=== PATIENT | male | born 1995 | race African-American/Black ===

== ENCOUNTER 2022-07-07 08:35 | Emergency (ER) | payer SELFPAY ==
[~2022-07-07] VITALS: Ht 182.8 cm; Wt 68.0 kg
[2022-07-07] MEDS ORDERED: ONDANSETRON 4 MG/2 ML (SDV) Z0FRAN IVP ONE (08:40)
[2022-07-07 08:53] LABS: BASOPHILS # (AUTO) 0.1 10^3/uL (0.0-0.1); BASOPHILS % (AUTO) 0 % (0-10); EOSINOPHILS # (AUTO) 0.2 10^3/uL (0.0-0.3); EOSINOPHILS % (AUTO) 2 % (0-10); HEMATOCRIT 42 % (40-54); HEMOGLOBIN 14.1 g/dL (13.3-17.7); LYMPHOCYTES # (AUTO) 2.5 10^3/uL (1.0-4.0); LYMPHOCYTES % (AUTO) 22 % (12-44); MEAN CORPUSCULAR HEMOGLOBIN 32 pg (25-34); MEAN CORPUSCULAR HGB CONC 34 g/dL (32-36); MEAN CORPUSCULAR VOLUME 96 fL (80-99); MEAN PLATELET VOLUME 10.2 fL (9.0-12.2); MONOCYTES # (AUTO) 0.7 10^3/uL (0.0-1.0); MONOCYTES % (AUTO) 6 % (0-12); NEUTROPHILS % (AUTO) 69 % (42-75); PLATELET COUNT 202 10^3/uL (130-400); WHITE BLOOD COUNT 11.5 10^3/uL (4.3-11.0)
--- NOTE | 2022-07-07 08:53 | ED General ---
General Chief Complaint: Altered Mental Status Stated Complaint: AMS Nursing Triage Note: pt arrived via cc ems. ems stated that pts stated that pt was sweating, cold, tachycardia, lethargic, and confused. pt stated that has been sick as well. Source of Information: Patient Exam Limitations: No Limitations History of Present Illness Date Seen by Provider: Jul 07, 2022 Time Seen by Provider: 08:30 Initial Comments 26-year-old male presents to the emergency department via ambulance for nausea and vomiting. He states he felt fine when he went to sleep last night and he woke up this morning with vomiting several times. Emesis has been clear, nonbloody nonbilious. He denies any fevers but has had chills that started with his onset of vomiting. He has diffuse abdominal cramping without any focal abdominal tenderness. No changes in his bowel or bladder habits. He tells me that his has been at home with vomiting illness as well. Allergies and Home Medications Allergies Coded Allergies: No Known Drug Allergies (Unverified , 07/07/22) Patient Home Medication List Home Medication List Reviewed: Yes Ondansetron (Ondansetron Odt) 4 Mg Tab.rapdis, 4 MG PO Q6H Prescribed by: RUPALI CORADO MD on 07/07/22 8437 Review of Systems Review of Systems Constitutional: chills EENTM: no symptoms reported Respiratory: no symptoms reported Cardiovascular: no symptoms reported Gastrointestinal: nausea, vomiting Genitourinary: no symptoms reported Musculoskeletal: no symptoms reported Skin: no symptoms reported Psychiatric/Neurological: No Symptoms Reported Past Vwalhhs-Qqvchj-Dvfqbk Hx Patient Social History Tobacco Use?: No Use of E-Cig and/or Vaping dev: No Substance type: Marijuana Substance frequency: Rarely Seasonal Allergies Seasonal Allergies: No Past Medical History Surgery/Hospitalization HX: Left jaw surgery Surgeries: Yes Family Medical History Reviewed Nursing Family Hx Physical Exam Vital Signs Vital Signs - First Documented 07/07/22 08:35 Temp 37.0 Pulse 94 Resp 17 B/P (MAP) 162/146 (151) Pulse Ox 98 O2 Delivery Room Air Capillary Refill : Less Than 3 Seconds Height, Weight, BMI Height: '" Weight: lbs. oz. kg; 20.00 BMI Method: General Appearance: WD/WN, Other (Vomiting) HEENT: Normal ENT Inspection, Pharynx Normal Neck: Normal Inspection, Non Tender, Supple Respiratory: Chest Non Tender, Lungs Clear, Normal Breath Sounds, No Accessory Muscle Use, No Respiratory Distress Cardiovascular: Regular Rate, Rhythm, No Edema, No Gallop, No Murmur, Normal Peripheral Pulses Gastrointestinal: Normal Bowel Sounds, No Organomegaly, Non Tender, Soft Extremity: Normal Capillary Refill, Normal Inspection, Non Tender Neurologic/Psychiatric: Alert, Oriented x3 Skin: Normal Color, Warm/Dry Progress/Results/Core Measures Suspected Sepsis SIRS Temperature: Pulse: 94 Respiratory Rate: 17 Laboratory Tests 07/07/22 08:50: White Blood Count 11.5H Blood Pressure 162 /146 Mean: 151 Laboratory Tests 07/07/22 08:50: Creatinine 1.23, Platelet Count 202 Results/Orders Lab Results Laboratory Tests Test 07/07/22 08:50 Range/Units White Blood Count 11.5 H 4.3-11.0 10^3/uL Red Blood Count 4.38 4.30-5.52 10^6/uL Hemoglobin 14.1 13.3-17.7 g/dL Hematocrit 42 40-54 % Mean Corpuscular Volume 96 80-99 fL Mean Corpuscular Hemoglobin 32 25-34 pg Mean Corpuscular Hemoglobin Concent 34 32-36 g/dL Red Cell Distribution Width 12.6 10.0-14.5 % Platelet Count 202 130-400 10^3/uL Mean Platelet Volume 10.2 9.0-12.2 fL Immature Granulocyte % (Auto) 1 % Neutrophils (%) (Auto) 69 42-75 % Lymphocytes (%) (Auto) 22 12-44 % Monocytes (%) (Auto) 6 0-12 % Eosinophils (%) (Auto) 2 0-10 % Basophils (%) (Auto) 0 0-10 % Neutrophils # (Auto) 8.0 H 1.8-7.8 10^3/uL Lymphocytes # (Auto) 2.5 1.0-4.0 10^3/uL Monocytes # (Auto) 0.7 0.0-1.0 10^3/uL Eosinophils # (Auto) 0.2 0.0-0.3 10^3/uL Basophils # (Auto) 0.1 0.0-0.1 10^3/uL Immature Granulocyte # (Auto) 0.1 0.0-0.1 10^3/uL Sodium Level 139 135-145 MMOL/L Potassium Level 3.4 L 3.6-5.0 MMOL/L Chloride Level 103 98-107 MMOL/L Carbon Dioxide Level 13 L 21-32 MMOL/L Anion Gap 23 H 5-14 MMOL/L Blood Urea Nitrogen 13 7-18 MG/DL Creatinine 1.23 0.60-1.30 MG/DL Estimat Glomerular Filtration Rate 82 BUN/Creatinine Ratio 11 Glucose Level 185 H 70-105 MG/DL Calcium Level 9.3 8.5-10.1 MG/DL SARS-CoV-2 RNA (RT-PCR) Not Detected Not Detecte My Orders Orders - RUPALI CORADO DO Basic Metabolic Panel (07/07/22 08:46) Cbc With Automated Diff (07/07/22 08:46) Covid 19 Inhouse Test (07/07/22 08:46) Ondansetron Injection (Zofran Injectio (07/07/22 08:40) Diphenhydramine Injection (Benadryl Inje (07/07/22 09:45) Vital Signs/I&O 07/07/22 08:35 Temp 37.0 Pulse 94 Resp 17 B/P (MAP) 162/146 (151) Pulse Ox 98 O2 Delivery Room Air Capillary Refill : Less Than 3 Seconds Blood Pressure Mean: 151 Departure Communication (Admissions) Patient initially with significant vomiting in the room. No further vomiting episodes after Zofran. Tolerated p.o. without difficulty. Normal vital signs and normal. His exam is reassuring. He is discharged in stable condition with supportive care. I advised him on the use of Zofran and need for follow-up and he states understanding. Questions were sought and answered. Impression Primary Impression: Nausea and vomiting Qualified Codes: R11.2 - Nausea with vomiting, unspecified Disposition: 01 HOME, SELF-CARE Condition: Stable Departure-Patient Inst. Patient Instructions: Nausea and Vomiting, Adult (DC) Add. Discharge Instructions: You were seen in the emergency department today for nausea vomiting and chills. I believe you have a GI bug that is going around. We will treat you conservatively with Zofran. Use this by dissolving under your tongue as needed for vomiting. Increase your fluids at home as tolerated. Return to the emergency department for any severe concerns. Follow-up with your primary physician for any nonemergent needs. All discharge instructions reviewed with patient and/or family. Voiced understanding. Scripts Ondansetron (Ondansetron Odt) 4 Mg Tab.rapdis 4 MG PO Q6H for Nausea for 5 Days, #20 TAB Prov: RUPALI CORADO DO 07/07/22 RUPALI CORADO DO Jul 07, 2022 08:53
[2022-07-07 09:03] LABS: POTASSIUM 3.4 MMOL/L (3.6-5.0)
[2022-07-07 09:04] LABS: CALCIUM 9.3 MG/DL (8.5-10.1)
[2022-07-07 09:08] LABS: CREATININE SERUM 1.23 MG/DL (0.60-1.30)
[2022-07-07] MEDS ORDERED: ONDA4TAB11 PO (09:35)
[2022-07-07] MEDS ORDERED: diphenhydrAMINE 50 MG/ML INJ (BENADRYL) IVP ONE (09:45)
[2022-07-07 09:55] VITALS: BP 145/89
== END 2022-07-07 09:55 | disposition home or self-care (01) ==
LOC: ER 08:39
DX: R11.2 Nausea with vomiting, unspecified (principal); Z20.822 Contact with and (suspected) exposure to COVID-19; Z28.310 Unvaccinated for COVID-19
CPT/HCPCS: 36415; 80048; 85025; 87636

== ENCOUNTER 2023-01-08 08:25 | Emergency (ER) | payer SELFPAY ==
[~2023-01-08] VITALS: Ht 182 cm; Wt 81.0 kg
[~2023-01-08 08:25] MED LIST: ONDA4TAB11 PO
[2023-01-08] MEDS ORDERED: ONDANSETRON 4 MG/2 ML (SDV) Z0FRAN ONE (08:35)
[2023-01-08] MEDS ORDERED: NS IV 1000 ML 1,000 ML IV SCH (08:45)
[2023-01-08] MEDS ORDERED: ONDANSETRON 4 MG/2 ML (SDV) Z0FRAN IVP ONE (08:45)
[2023-01-08] MEDS ORDERED: PANTOPRAZOLE 40 MG (PROTONIX) VIAL IV ONE (08:45)
[2023-01-08 08:47] LABS: BASOPHILS # (AUTO) 0.1 10^3/uL (0.0-0.1); BASOPHILS % (AUTO) 0 % (0-10); EOSINOPHILS # (AUTO) 0.4 10^3/uL (0.0-0.3); EOSINOPHILS % (AUTO) 3 % (0-10); HEMATOCRIT 41 % (40-54); LYMPHOCYTES # (AUTO) 3.5 10^3/uL (1.0-4.0); LYMPHOCYTES % (AUTO) 22 % (12-44); MEAN CORPUSCULAR HEMOGLOBIN 33 pg (25-34); MEAN CORPUSCULAR HGB CONC 34 g/dL (32-36); MEAN CORPUSCULAR VOLUME 96 fL (80-99); MEAN PLATELET VOLUME 10.6 fL (9.0-12.2); MONOCYTES # (AUTO) 0.8 10^3/uL (0.0-1.0); MONOCYTES % (AUTO) 5 % (0-12); NEUTROPHILS # (AUTO) 11.1 10^3/uL (1.8-7.8); NEUTROPHILS % (AUTO) 70 % (42-75); PLATELET COUNT 187 10^3/uL (130-400)
[2023-01-08 08:53] LABS: BILIRUBIN,URINE NEGATIVE (NEGATIVE); CLARITY,URINE CLEAR; COLOR,URINE YELLOW; GLUCOSE, URINE (UA) 1+ (NEGATIVE); KETONES,URINE 1+ (NEGATIVE); LEUKOCYTE ESTERASE ,URINE NEGATIVE (NEGATIVE); NITRITE,URINE NEGATIVE (NEGATIVE); PH,URINE 5.5 (5-9); PROTEIN,URINE NEGATIVE (NEGATIVE)
[2023-01-08 08:57] LABS: ALBUMIN 4.1 GM/DL (3.2-4.5)
[2023-01-08 08:58] LABS: POTASSIUM 3.8 MMOL/L (3.6-5.0)
[2023-01-08 08:59] LABS: CALCIUM 8.8 MG/DL (8.5-10.1)
[2023-01-08 08:59] LABS: BACTERIA,URINE NEGATIVE /HPF; SQUAMOUS EPITHELIAL CELL,UR RARE /HPF
[2023-01-08 09:00] LABS: TOTAL PROTEIN 7.7 GM/DL (6.4-8.2)
[2023-01-08 09:02] LABS: BILIRUBIN,TOTAL 0.4 MG/DL (0.1-1.0)
[2023-01-08 09:04] LABS: AMPHETAMINE SCREEN, URINE NEGATIVE (NEGATIVE); BARBITURATE SCREEN URINE NEGATIVE (NEGATIVE); BENZODIAZEPINES SCREEN URINE NEGATIVE (NEGATIVE); CANNABINOID SCREEN, URINE POSITIVE (NEGATIVE); COCAINE SCREEN URINE NEGATIVE (NEGATIVE); METHADONE STAT NEGATIVE (NEGATIVE); OPIATE SCREEN URINE NEGATIVE (NEGATIVE); OXYCODONE STAT NEGATIVE (NEGATIVE); PROPOXYPHENE STAT NEGATIVE (NEGATIVE); TRICYCLIC ANTIDEPRESSANTS SCRE NEGATIVE (NEGATIVE)
[2023-01-08 09:04] LABS: CREATININE SERUM 1.03 MG/DL (0.60-1.30)
[2023-01-08 09:05] LABS: SALICYLATE < 5.0 MG/DL (5.0-20.0)
[2023-01-08 09:07] LABS: BAND NEUTROPHILS 1 %; BASOPHILS % (MANUAL) 1 %; EOSINOPHILS % (MANUAL) 6 %; LYMPHOCYTES % (MANUAL) 29 %; MONOCYTES % (MANUAL) 1 %; NEUTROPHILS % (MANUAL) 62 %
[2023-01-08 09:08] LABS: RBC MORPH NORMAL
--- NOTE | 2023-01-08 09:25 | Diagnostic Imaging Report ---
INDICATION: Chest pain FINDINGS: External leads overlie the chest. The lungs appeared clear. There is no failure, effusion or pneumothorax however we acknowledge portions of the right costophrenic angle outside the [id number]. IMPRESSION: 1. No acute or pathological finding radiographically apparent at AP frontal chest. 2. We note on the film itself it is labeled as 2 of 2, however I only have one radiograph submitted for review. Dictated by: Dictated on workstation # [id number]
[2023-01-08 09:54] LABS: PROTHROMBIN TIME PATIENT 13.7 SEC (12.2-14.7)
--- NOTE | 2023-01-08 09:54 | ED Chest Pain ---
General Chief Complaint: Chest Pain Stated Complaint: UNRESPONSIVE Nursing Triage Note: PT ARRIVED PER EMS, PT HAS SEVERE CHEST PAIN, SWEATING, BS 44 FOR EMS, D10 INFUSING IN L FA W #20 BY EMS. PT IS SHAKING, UNABLE TO HOLD STILL, CLUTCHING L CHEST AREA. PT STATES SMOKED WEED LAST PM AND DRANK ALOT OF BEER. EMS STATES PT UNRESP AT TIMES AND QUIT BREATHING, BAGGED A COUPLE OF TIMES, PT RESPONSIVE UPON ARRIVAL TO ED. PT ABLE TO ANSWER SIMPLE QUESTIONS. PT PLACED ON NRB. Source: patient, EMS Exam Limitations: clinical condition History of Present Illness Date Seen by Provider: Jan 08, 2023 Time Seen by Provider: 08:28 Initial Comments This 27-year-old young man presents to the emergency room with primary complaint of chest pain. He has been experiencing intermittent chest pain for the last 2 to 3 days and last frequently for a long time prior to that. He has episodes of associated pain in his neck and paresthesias down the left arm. He consumed a significant amount of alcohol last night as well as marijuana. In route with EMS he became less responsive with relative apnea. He retained pulse. He was found to have a blood sugar of 44. A D10 infusion was initiated by EMS. The D10 infusion was bolused and rapidly with a resulting fingerstick blood sugar of 197. Patient became much more alert and conversant. Chest pain seemed more musculoskeletal or pleuritic in nature as it did seem to have worsening with palpation, deep breathing, and movement. Patient admits to drinking alcohol and smoking marijuana every day. He also has history of mental illness including PTSD. He was previously on Seroquel but has not been taking any for the past 4 years. He presently has no local physician. He is accompanied today by his fiance. He developed vomiting shortly after arrival. His fiance reports history of substance induced and withdrawal seizures in the past. Historians are EMS, patient and fiance. Allergies and Home Medications Allergies Coded Allergies: No Known Drug Allergies (Unverified , 07/07/22) Patient Home Medication List Home Medication List Reviewed: Yes Ondansetron (Ondansetron Odt) 4 Mg Tab.rapdis, 4 MG PO Q6H Prescribed by: RUPALI CORADO MD on 07/07/22 0964 Review of Systems Review of Systems Constitutional: no symptoms reported EENTM: No Symptoms Reported Respiratory: See HPI Cardiovascular: No Symptoms Reported Gastrointestinal: See HPI Genitourinary: No Symptoms Reported Musculoskeletal: see HPI Skin: no symptoms reported Psychiatric/Neurological: See HPI Endocrine: No Symptoms Reported Hematologic/Lymphatic: See HPI Past Klyaeae-Wqlvpm-Wfsclk Hx Patient Social History Tobacco Use?: No Substance use?: Yes Substance type: Marijuana Substance frequency: Daily Alcohol Use?: Yes Alcohol type: Beer Alcohol Frequency: Daily Pt feels they are or have been: No Immunizations Up To Date Influenza Vaccine Up-to-Date: No; Not Current First/Initial COVID19 Vaccinat: NO Seasonal Allergies Seasonal Allergies: No Past Medical History Surgery/Hospitalization HX: Left jaw surgery Surgeries: Yes Respiratory: Yes Asthma Cardiac: No Neurological: Yes Seizure Disorder (associated with substance abuse and withdrawal) Genitourinary: No Gastrointestinal: No Musculoskeletal: No Endocrine: No HEENT: No Cancer: No Psychosocial: Yes (Polysubstance abuse) PTSD Integumentary: No Physical Exam Vital Signs Vital Signs - First Documented 01/08/23 01/08/23 08:25 09:15 Temp 34.0 Pulse 96 Resp 44 B/P (MAP) 131/92 (105) Pulse Ox 100 O2 Delivery OxyMask O2 Flow Rate 10.00 Capillary Refill : Less Than 3 Seconds Height, Weight, BMI Height: '" Weight: lbs. oz. kg; 24.00 BMI Method: General Appearance: WD/WN, Moderate Distress (agitated and vomiting early in ED course), Thin HEENT: PERRL/EOMI, Normal ENT Inspection, Pharynx Normal Neck: Normal Inspection Respiratory: Lungs Clear, Normal Breath Sounds, No Accessory Muscle Use Cardiovascular: Regular Rate, Rhythm, No Edema, No Murmur Gastrointestinal: Soft; No Distended; Tenderness (mild in the epigastrium) Extremity: Normal Inspection, No Pedal Edema Neurologic/Psychiatric: Alert, Oriented x3, No Motor/Sensory Deficits, Normal Mood/Affect, physician office specialist II-XII Norm as Tested, Other (Initial AMS resolved with correction of hypoglycemia) Skin: Normal Color Progress/Results/Core Measures Results/Orders Lab Results Laboratory Tests Test 01/08/23 08:36 01/08/23 08:40 01/08/23 08:46 01/08/23 09:17 Range/Units White Blood Count 16.0 H 4.3-11.0 10^3/uL Red Blood Count 4.29 L 4.30-5.52 10^6/uL Hemoglobin 14.0 13.3-17.7 g/dL Hematocrit 41 40-54 % Mean Corpuscular Volume 96 80-99 fL Mean Corpuscular Hemoglobin 33 25-34 pg Mean Corpuscular Hemoglobin Concent 34 32-36 g/dL Red Cell Distribution Width 12.2 10.0-14.5 % Platelet Count 187 130-400 10^3/uL Mean Platelet Volume 10.6 9.0-12.2 fL Immature Granulocyte % (Auto) 0 % Neutrophils (%) (Auto) 70 42-75 % Lymphocytes (%) (Auto) 22 12-44 % Monocytes (%) (Auto) 5 0-12 % Eosinophils (%) (Auto) 3 0-10 % Basophils (%) (Auto) 0 0-10 % Neutrophils # (Auto) 11.1 H 1.8-7.8 10^3/uL Lymphocytes # (Auto) 3.5 1.0-4.0 10^3/uL Monocytes # (Auto) 0.8 0.0-1.0 10^3/uL Eosinophils # (Auto) 0.4 H 0.0-0.3 10^3/uL Basophils # (Auto) 0.1 0.0-0.1 10^3/uL Immature Granulocyte # (Auto) 0.1 0.0-0.1 10^3/uL Neutrophils % (Manual) 62 % Lymphocytes % (Manual) 29 % Monocytes % (Manual) 1 % Eosinophils % (Manual) 6 % Basophils % (Manual) 1 % Band Neutrophils 1 % Blood Morphology Comment NORMAL Sodium Level 139 135-145 MMOL/L Potassium Level 3.8 3.6-5.0 MMOL/L Chloride Level 104 98-107 MMOL/L Carbon Dioxide Level 14 L 21-32 MMOL/L Anion Gap 21 H 5-14 MMOL/L Blood Urea Nitrogen 11 7-18 MG/DL Creatinine 1.03 0.60-1.30 MG/DL Estimat Glomerular Filtration Rate 101 BUN/Creatinine Ratio 11 Glucose Level 161 H 70-105 MG/DL Calcium Level 8.8 8.5-10.1 MG/DL Corrected Calcium 8.7 8.5-10.1 MG/DL Magnesium Level 2.0 1.6-2.4 MG/DL Total Bilirubin 0.4 0.1-1.0 MG/DL Aspartate Amino Transf (AST/SGOT) 109 H 5-34 U/L Alanine Aminotransferase (ALT/SGPT) 121 H 0-55 U/L Alkaline Phosphatase 56 40-136 U/L Myoglobin 26.0 10.0-92.0 NG/ML Troponin I < 0.028 <0.028 NG/ML Total Protein 7.7 6.4-8.2 GM/DL Albumin 4.1 3.2-4.5 GM/DL Salicylates Level < 5.0 L 5.0-20.0 MG/DL Serum Alcohol 120 H <10 MG/DL Urine Color YELLOW Urine Clarity CLEAR Urine pH 5.5 5-9 Urine Specific [place] 1.025 H 1.016-1.022 Urine Protein NEGATIVE NEGATIVE Urine Glucose (UA) 1+ H NEGATIVE Urine Ketones 1+ H NEGATIVE Urine Nitrite NEGATIVE NEGATIVE Urine Bilirubin NEGATIVE NEGATIVE Urine Urobilinogen 0.2 < = 1.0 MG/DL Urine Leukocyte Esterase NEGATIVE NEGATIVE Urine RBC (Auto) NEGATIVE NEGATIVE Urine RBC NONE /HPF Urine WBC NONE /HPF Urine Squamous Epithelial Cells RARE /HPF Urine Crystals NONE /LPF Urine Bacteria NEGATIVE /HPF Urine Casts NONE /LPF Urine Mucus NEGATIVE /LPF Urine Culture Indicated NO Urine Opiates Screen NEGATIVE NEGATIVE Urine Oxycodone Screen NEGATIVE NEGATIVE Urine Methadone Screen NEGATIVE NEGATIVE Urine Propoxyphene Screen NEGATIVE NEGATIVE Urine Barbiturates Screen NEGATIVE NEGATIVE Ur Tricyclic Antidepressants Screen NEGATIVE NEGATIVE Urine Phencyclidine Screen NEGATIVE NEGATIVE Urine Amphetamines Screen NEGATIVE NEGATIVE Urine Methamphetamines Screen NEGATIVE NEGATIVE Urine Benzodiazepines Screen NEGATIVE NEGATIVE Urine Cocaine Screen NEGATIVE NEGATIVE Urine Cannabinoids Screen POSITIVE H NEGATIVE Glucometer 197 H 70-110 MG/DL Total Creatine Kinase 220 H 30-200 U/L C-Reactive Protein High Sensitivity 0.04 0.00-0.50 MG/DL Lipase 11 8-78 U/L Test 01/08/23 09:24 01/08/23 11:48 01/08/23 12:08 01/08/23 12:43 Range/Units Prothrombin Time 13.7 12.2-14.7 SEC INR Comment 1.0 0.8-1.4 Activated Partial Thromboplast Time 26 24-35 SEC D-Dimer < 0.27 0.00-0.49 UG/ML Troponin I < 0.028 <0.028 NG/ML Glucometer 59 *L 158 H 70-110 MG/DL Test 01/08/23 13:36 01/08/23 14:08 Range/Units Glucometer 111 H 138 H 70-110 MG/DL My Orders Orders - SOPHIA MORALES MD Cbc With Automated Diff (01/08/23 08:34) Magnesium (01/08/23 08:34) Chest 1 View, Ap/Pa Only (01/08/23 08:34) Ekg Tracing (01/08/23 08:34) Comprehensive Metabolic Panel (01/08/23 08:34) Myoglobin Serum (01/08/23 08:34) Protime With Inr (01/08/23 08:34) Partial Thromboplastin Time (01/08/23 08:34) O2 (01/08/23 08:34) Monitor-Rhythm Ecg Trace Only (01/08/23 08:34) Ed Iv/Invasive Line Start (01/08/23 08:34) Fibrin Degradation Products (01/08/23 08:34) Troponin I [facility] (01/08/23 08:34) Acetaminophen (01/08/23 08:34) Alcohol (01/08/23 08:34) Drug Screen Stat (Urine) (01/08/23 08:34) Salicylate (01/08/23 08:34) Ua Culture If Indicated (01/08/23 08:34) Ondansetron Injection (Zofran Injectio (01/08/23 08:45) Ns Iv 1000 Ml (Sodium Chloride 0.9%) (01/08/23 08:45) Ondansetron Injection (Zofran Injectio (01/08/23 08:35) Pantoprazole Injection (Protonix Injecti (01/08/23 08:45) Manual Differential (01/08/23 08:36) Creatine Kinase (01/08/23 09:17) Hs C Reactive Protein (01/08/23 09:17) Lipase (01/08/23 09:17) Accucheck Stat ONCE (01/08/23 09:19) Accucheck Stat ONCE (01/08/23 09:19) Accucheck Stat ONCE (01/08/23 09:19) Ekg Tracing (01/08/23 09:55) Troponin I [place] (01/08/23 11:10) Ct Head/Cervical Spine Wo (01/08/23 11:04) Ketorolac Injection (Toradol Injection) (01/08/23 12:00) D50w (Emergency) Syringe (Dextrose 50% 5 (01/08/23 12:15) Accucheck Stat ONCE (01/08/23 12:14) Accucheck Stat ONCE (01/08/23 12:14) D50w (Emergency) Syringe (Dextrose 50% 5 (01/08/23 12:13) Ekg Tracing (01/08/23 08:43) Medications Given in ED Vital Signs/I&O 01/08/23 01/08/23 01/08/23 08:25 09:15 12:02 Temp 34.0 35.6 Pulse 96 98 Resp 44 16 B/P (MAP) 131/92 (105) 127/76 Pulse Ox 100 100 98 O2 Delivery OxyMask O2 Flow Rate 10.00 Blood Pressure Mean: 105 FSBG Bedside Testing Finger Stick Blood Glucose: 197 Blood Glucose Action Taken: REPORTED TO DR Ta Progress Note #1: Progress Note Initial treatments were provided with Zofran, Protonix, IVF, and completion of the D10 infusion. Pain was later treated with Toradol. Labs were reviewed including CBC, CMP, CK, CRP, Lipase, Troponin, and D-Dimer. Serial troponins were negative. Leukocytosis was noted but was likely secondary to vomiting as CRP was normal. Lipase and CMP were relatively unremarkable. Progress Note #2: Time: 14:10 Progress Note Delta troponin was negative. Patient had a recurrent hypoglycemia with blood sugar of 59. He was treated again with D50 and provided food. Blood sugars thereafter were 158, 111, and 138. These blood sugars demonstrated stability and he was discharged. Patient was offered admission for observation. He elected to finish out a reasonable course of care in the ER with demonstrated stabilization of BS and evaluation of the head and cervical spine to rule out dangerous pathology of the cervical spine or brain contributing to his AMS and pain in the chest and arm. Cervical radiculopathy was suspected as a contributing factor. CT imaging was reviewed by me and reports was reviewed. No contributing pathology was identified. He was encouraged to pursue MRI with a PCP. He was advised to completely stop THC use, taper down on alcohol, and establish with a PCP. See discharge instructions for further discussion. EKG #1: EKG Time: 08:27 Rate: 98 Rhythm: Normal Sinus Intervals QTc 556 Comment Sinus rhythm with no ST elevation or depression. QTc prolonged at 556 ms. No other abnormal intervals. Right axis deviation. EKG #2: EKG Time: 08:44 Rate: 100 Rhythm: S.Tach Intervals: Normal Comment Mild sinus tachycardia with no ST elevation or depression. PVC noted. QTc prolongation has resolved and new QTc is 480 ms. No axis deviation. Diagnostic Imaging Diagonstic Imaging: Xray Plain Films/CT/US/NM/MRI: chest Comments NAME: DARWIN HUIZAR [facility] REC#: [id number] PT STATUS: REG ER : 1995 PHYSICIAN: SOPHIA MORALES MD ADMIT DATE: 01/08/23/ER Signed Date of Exam:01/08/23 CHEST 1 VIEW, AP/PA ONLY INDICATION: Chest pain FINDINGS: External leads overlie the chest. The lungs appeared clear. There is no failure, effusion or pneumothorax however we acknowledge portions of the right costophrenic angle outside the [id number]. IMPRESSION: 1. No acute or pathological finding radiographically apparent at AP frontal chest. 2. We note on the film itself it is labeled as 2 of 2, however I only have one radiograph submitted for review. Dictated by: Dictated on workstation # [id number] Dict: 01/08/23918 Trans: 01/08/23923 [facility] [id number] Interpreted by: COLLINS JAUREGUI Electronically signed by: COLLINS JAUREGUI 01/08/23923 Diagonstic Imaging: CT Plain Films/CT/US/NM/MRI: c-spine, head Comments NAME: DARWIN HUIZAR [facility] REC#: [id number] PT STATUS: REG ER : 1995 PHYSICIAN: SOPHIA MORALES MD ADMIT DATE: 01/08/23/ER Signed Date of Exam:01/08/23 CT HEAD/CERVICAL SPINE WO PROCEDURE: CT head and CT cervical spine without contrast. TECHNIQUE: Multiple contiguous axial images were obtained through the brain and cervical spine without the use of intravenous contrast. Sagittal and coronal reformations through the cervical spine were then performed. Auto Exposure Controls were utilized during the CT exam to meet ALARA standards for radiation dose reduction. INDICATION: Chest pain, left arm radicular symptoms. COMPARISON: None available. FINDINGS: No intracranial hemorrhage. No intracranial mass, mass effect, midline shift, herniation, hydrocephalus, or extra-axial fluid collection. No definite CT evidence of an acute ischemic infarction. The orbits are unremarkable. Significant mucosal thickening and fluid within the bilateral ethmoid air cells, left greater than right. This is associated with mild inspissated secretions and mucosal thickening within the left sphenoid sinus. Mild mucosal thickening within the left maxillary sinus and right maxillary sinus. Leftward nasal septal deviation. The calvarium and extracalvarial soft tissues are otherwise unremarkable. [place] right curvature of the visualized cervicothoracic spine. No significant anterolisthesis or retrolisthesis. Alignment of the atlanto-occipital joint is well maintained. Vertebral body heights are well maintained. No significant disc space height loss. Plate and screw fixation involving the left mandible. Degenerative changes associated with the right temporomandibular joint. No acute fracture or dislocation. No destructive osseous process. No high-grade osseous central canal or neural foraminal stenosis. No apical pneumothorax. The paraspinal soft tissues are unremarkable. IMPRESSION: No acute intracranial abnormality. Mild apex right curvature of the cervical spine without acute osseous abnormality. Fluid and mucosal thickening within scattered ethmoidal air cells with additional mild paranasal sinus disease. Dictated by: Dictated on workstation # [id number] Dict: 01/08/23 1128 Trans: 01/08/23 1140 [id number] Interpreted by: GERONIMO ALVAREZ MD Electronically signed by: GERONIMO ALVAREZ MD 01/08/23 1140 Departure Impression Primary Impression: Altered mental status Qualified Codes: R41.82 - Altered mental status, unspecified Additional Impressions: Hypoglycemia Nausea & vomiting Qualified Codes: R11.2 - Nausea with vomiting, unspecified Polysubstance abuse Disposition: 01 HOME, SELF-CARE Condition: Improved Departure-Patient Inst. Decision time for Depature: 11:52 Referrals: NO,LOCAL PHYSICIAN (PCP/Family) Primary Care Physician Patient Instructions: ALCOHOL AND SUBSTANCE ABUSE, Chest Pain, HYPOGLYCEMIA, Radiculopathy Add. Discharge Instructions: Establish with a primary care provider as soon as possible. Make a follow-up appointment. Discussed the possibility of further evaluation with MRI of the cervical spine and brain with your primary care doctor. Complete the financial assistance application process with the hospital to help facilitate any future test that may be needed. For your pain you may take Tylenol (acetaminophen) up to 1000 mg every 6 hours as needed and/or ibuprofen up to 600 mg every 6 hours as needed. Discontinue marijuana use completely. Start tapering down on your alcohol use to gradually work toward quitting. Do not abruptly stop alcohol use as this may cause life-threatening withdrawal and seizures. Your alcohol consumption should be gradually decreased over a period of several weeks. Eat a well-balanced diet and eat snacks containing carbohydrate frequently to avoid drops in blood sugar. Return to the emergency room if you have any worsening of symptoms. All discharge instructions reviewed with patient and/or family. Voiced understanding. SOPHIA MORALES MD Jan 08, 2023 09:54
--- NOTE | 2023-01-08 11:40 | Diagnostic Imaging Report ---
PROCEDURE: CT head and CT cervical spine without contrast. TECHNIQUE: Multiple contiguous axial images were obtained through the brain and cervical spine without the use of intravenous contrast. Sagittal and coronal reformations through the cervical spine were then performed. Auto Exposure Controls were utilized during the CT exam to meet ALARA standards for radiation dose reduction. INDICATION: Chest pain, left arm radicular symptoms. COMPARISON: None available. FINDINGS: No intracranial hemorrhage. No intracranial mass, mass effect, midline shift, herniation, hydrocephalus, or extra-axial fluid collection. No definite CT evidence of an acute ischemic infarction. The orbits are unremarkable. Significant mucosal thickening and fluid within the bilateral ethmoid air cells, left greater than right. This is associated with mild inspissated secretions and mucosal thickening within the left sphenoid sinus. Mild mucosal thickening within the left maxillary sinus and right maxillary sinus. Leftward nasal septal deviation. The calvarium and extracalvarial soft tissues are otherwise unremarkable. Delta right curvature of the visualized cervicothoracic spine. No significant anterolisthesis or retrolisthesis. Alignment of the atlanto-occipital joint is well maintained. Vertebral body heights are well maintained. No significant disc space height loss. Plate and screw fixation involving the left mandible. Degenerative changes associated with the right temporomandibular joint. No acute fracture or dislocation. No destructive osseous process. No high-grade osseous central canal or neural foraminal stenosis. No apical pneumothorax. The paraspinal soft tissues are unremarkable. IMPRESSION: No acute intracranial abnormality. Mild apex right curvature of the cervical spine without acute osseous abnormality. Fluid and mucosal thickening within scattered ethmoidal air cells with additional mild paranasal sinus disease. Dictated by: Dictated on workstation # [id number]
[2023-01-08] MEDS ORDERED: KETOROLAC 30 MG/ML VIAL IVP ONE (12:00)
[2023-01-08 12:02] VITALS: BP 127/76
[2023-01-08] MEDS ORDERED: DEXTROSE 50% 50 ML (IMS) SYR ONE (12:13)
[2023-01-08] MEDS ORDERED: DEXTROSE 50% 50 ML (IMS) SYR IV ONE (12:15)
== END 2023-01-08 14:18 | disposition home or self-care (01) ==
LOC: EDUNIT# 08:27 → ER 08:28
DX: E16.2 Hypoglycemia, unspecified (principal); F19.10 Other psychoactive substance abuse, uncomplicated; D72.829 Elevated white blood cell count, unspecified; Z28.310 Unvaccinated for COVID-19
CPT/HCPCS: 70450; 71045; 72125; 80053; 80306; 81000; 82550; 82947; 83690; 83735; 83874; 84484; 85007; 85027; 85379; 85610; 85730; 86141; 93041; G0480 ×2; 36415; 80320; 80329; 93005

== ENCOUNTER 2023-09-30 17:39 | Emergency (ER) | payer SELFPAY ==
--- NOTE | 2023-09-30 18:10 | ED Neurological Problem ---
General Chief Complaint: Neurological Problems Stated Complaint: SEIZURE Nursing Triage Note: PT BROUGHT IN BY [facility] FROM HOME WITH COMPLAINT OF STRESS INDUCED SEIZURES. PT WENT AND LAID ON PORCH AND PER FAMILY HAD A SEIZURE. Source: patient Exam Limitations: no limitations (VANESSA DUNLAP) History of Present Illness Date Seen by Provider: Sep 30, 2023 Time Seen by Provider: 18:08 Initial Comments Patient is a 27-year-old male with a history of stress-induced seizures who presents to ED for seizure. Patient states he was laying in the bathroom and supposedly went to lay on the porch and had a witnessed seizure per family. Patient was appeared to be postictal on arrival. Patient states he has a history of stress-induced seizures not currently on medication. Last seizure 2 months ago. States he has been experiencing diarrhea for the past 3 days. Denies any vomiting. Patient states he does have a mild headache but denies hitting his head. Patient did drink 2 beers today. Denies any drug use. Denies of any specific chest pain, shortness of breath, abdominal pain, vomiting, diarrhea, neck pain, middle lower back pain. Patient on arrival alert and orient x4. GCS of 15. Seizure precautions. (VANESSA DUNLAP) Allergies and Home Medications Allergies Coded Allergies: ibuprofen (Verified Allergy, Severe, "Airway tightening", 01/09/23) Received toradol without problems Patient Home Medication List Home Medication List Reviewed: Yes (VANESSA DUNLAP) Ondansetron (Ondansetron Odt) 4 Mg Tab.rapdis, 4 MG PO Q6H Prescribed by: RUPALI CORADO MD on 07/07/22 8835 Review of Systems Review of Systems Constitutional: No chills, No diaphoresis, No malaise, No weakness Eyes: Denies Blurred Vision, Denies Drainage, Denies Decreased Acuity Ears, Nose, Mouth, Throat: denies ear pain, denies ear discharge Respiratory: No cough, No dyspnea on exertion Cardiovascular: No chest pain, No edema, No palpitations Gastrointestinal: No abdominal pain; diarrhea; No nausea, No vomiting Genitourinary: No decreased output, No discharge Musculoskeletal: No back pain, No joint pain Skin: No change in color, No change in hair/nails Psychiatric/Neurological: Denies Depressed (VANESSA DUNLAP) All Other Systems Reviewed Negative Unless Noted: Yes (VANESSA DUNLAP) Past Hhlkrei-Yawsax-Zjoblz Hx Patient Social History Tobacco Use?: No Use of E-Cig and/or Vaping dev: No Substance use?: Yes Alcohol Use?: Yes Alcohol type: Beer Alcohol Frequency: Once in a while Pt feels they are or have been: No (VANESSA DUNLAP) Immunizations Up To Date First/Initial COVID19 Vaccinat: NO Second COVID19 Vaccination João: NO Third COVID19 Vaccination Date: NO (VANESSA DUNLAP) Seasonal Allergies Seasonal Allergies: No (VANESSA DUNLAP) Past Medical History Surgery/Hospitalization HX: Left jaw surgery Surgeries: Yes Respiratory: Yes Asthma Cardiac: No Neurological: Yes Seizure Disorder Genitourinary: No Gastrointestinal: No Musculoskeletal: No Endocrine: No HEENT: No Cancer: No Psychosocial: Yes (Polysubstance abuse) PTSD Integumentary: No (VANESSA DUNLAP) Physical Exam Vital Signs Vital Signs - First Documented 09/30/23 17:44 Temp 35.0 Pulse 76 Resp 17 B/P (MAP) 110/93 (99) Pulse Ox 95 O2 Delivery Room Air (SOPHIA MORALES MD) Vital Signs Capillary Refill : Less Than 3 Seconds (VANESSA DUNLAP) Height, Weight, BMI Height: '" Weight: lbs. oz. kg; 24.00 BMI Method: General Appearance: WD/WN, no apparent distress HEENT: PERRL/EOMI, normal ENT inspection, TMs normal, pharynx normal Neck: non-tender, full range of motion, supple Respiratory: chest non-tender, lungs clear, normal breath sounds, no respiratory distress, no accessory muscle use Cardiovascular: regular rate, rhythm, no edema, no gallop, no JVD Gastrointestinal: normal bowel sounds, non tender, soft Back: normal inspection, no CVA tenderness Extremities: normal range of motion, non-tender, normal inspection, no pedal edema Neurologic/Psychiatric: equestrian trainer II-XII nml as tested, no motor/sensory deficits, alert, normal mood/affect, oriented x 3 Crainal Nerves: normal hearing, normal speech, PERRL Coordination/Gait: normal finger to nose, normal gait Motor/Sensory: no motor deficit, no sensory deficit Skin: normal color, warm/dry (VANESSA DUNLAP) Focused Exam Lactate Level 09/30/23 18:24: Lactic Acid Level 4.98*H 09/30/23 20:36: Lactic Acid Level 4.52*H (SOPHIA MORALES MD) Lactic Acid Level Laboratory Tests Test 09/30/23 18:24 09/30/23 20:36 Lactic Acid Level 4.98 MMOL/L (0.50-2.00) *H 4.52 MMOL/L (0.50-2.00) *H (SOPHIA MORALES MD) Progress/Results/Core Measures Results/Orders Lab Results Laboratory Tests Test 09/30/23 18:24 09/30/23 20:03 09/30/23 20:36 Range/Units White Blood Count 15.5 H 4.3-11.0 10^3/uL Red Blood Count 4.47 4.30-5.52 10^6/uL Hemoglobin 14.5 13.3-17.7 g/dL Hematocrit 43 40-54 % Mean Corpuscular Volume 97 80-99 fL Mean Corpuscular Hemoglobin 32 25-34 pg Mean Corpuscular Hemoglobin Concent 34 32-36 g/dL Red Cell Distribution Width 11.9 10.0-14.5 % Platelet Count 199 130-400 10^3/uL Mean Platelet Volume 9.8 9.0-12.2 fL Immature Granulocyte % (Auto) 1 % Neutrophils (%) (Auto) 81 H 42-75 % Lymphocytes (%) (Auto) 12 12-44 % Monocytes (%) (Auto) 5 0-12 % Eosinophils (%) (Auto) 1 0-10 % Basophils (%) (Auto) 0 0-10 % Neutrophils # (Auto) 12.6 H 1.8-7.8 10^3/uL Lymphocytes # (Auto) 1.8 1.0-4.0 10^3/uL Monocytes # (Auto) 0.8 0.0-1.0 10^3/uL Eosinophils # (Auto) 0.1 0.0-0.3 10^3/uL Basophils # (Auto) 0.1 0.0-0.1 10^3/uL Immature Granulocyte # (Auto) 0.1 0.0-0.1 10^3/uL Neutrophils % (Manual) 73 % Lymphocytes % (Manual) 19 % Monocytes % (Manual) 2 % Eosinophils % (Manual) 2 % Basophils % (Manual) 0 % Band Neutrophils 4 % Blood Morphology Comment NORMAL Sodium Level 142 135-145 MMOL/L Potassium Level 3.9 3.6-5.0 MMOL/L Chloride Level 103 98-107 MMOL/L Carbon Dioxide Level 21 21-32 MMOL/L Anion Gap 18 H 5-14 MMOL/L Blood Urea Nitrogen 17 7-18 MG/DL Creatinine 1.05 0.60-1.30 MG/DL Estimat Glomerular Filtration Rate 99 BUN/Creatinine Ratio 16 Glucose Level 70 70-105 MG/DL Lactic Acid Level 4.98 *H 4.52 *H 0.50-2.00 MMOL/L Calcium Level 9.6 8.5-10.1 MG/DL Corrected Calcium 8.5-10.1 MG/DL Total Bilirubin 0.4 0.1-1.0 MG/DL Aspartate Amino Transf (AST/SGOT) 57 H 5-34 U/L Alanine Aminotransferase (ALT/SGPT) 36 0-55 U/L Alkaline Phosphatase 62 40-136 U/L Total Protein 8.8 H 6.4-8.2 GM/DL Albumin 5.0 H 3.2-4.5 GM/DL Serum Alcohol 119 H <10 MG/DL Urine Color YELLOW Urine Clarity CLEAR Urine pH 5.0 5-9 Urine Specific [place] >=1.030 1.016-1.022 Urine Protein 1+ H NEGATIVE Urine Glucose (UA) NEGATIVE NEGATIVE Urine Ketones 3+ H NEGATIVE Urine Nitrite NEGATIVE NEGATIVE Urine Bilirubin NEGATIVE NEGATIVE Urine Urobilinogen 0.2 < = 1.0 MG/DL Urine Leukocyte Esterase NEGATIVE NEGATIVE Urine RBC (Auto) NEGATIVE NEGATIVE Urine RBC 0-2 /HPF Urine WBC 0-2 /HPF Urine Squamous Epithelial Cells 2-5 /HPF Urine Crystals NONE /LPF Urine Bacteria TRACE /HPF Urine Casts PRESENT /LPF Urine Hyaline Casts RARE /LPF Urine Mucus NEGATIVE /LPF Urine Culture Indicated NO Urine Opiates Screen NEGATIVE NEGATIVE Urine Oxycodone Screen NEGATIVE NEGATIVE Urine Methadone Screen NEGATIVE NEGATIVE Urine Barbiturates Screen NEGATIVE NEGATIVE Ur Tricyclic Antidepressants Screen NEGATIVE NEGATIVE Urine Phencyclidine Screen NEGATIVE NEGATIVE Urine Amphetamines Screen NEGATIVE NEGATIVE Urine Methamphetamines Screen NEGATIVE NEGATIVE Urine Benzodiazepines Screen NEGATIVE NEGATIVE Urine Cocaine Screen NEGATIVE NEGATIVE Urine Cannabinoids Screen POSITIVE H NEGATIVE (SOPHIA MORALES MD) Medications Given in ED Current Medications Medications Dose Ordered Sig/Yuridia Route Start Time Stop Time Status Last Admin Dose Admin Ondansetron HCl 4 mg ONCE ONCE IVP 09/30/23 19:00 09/30/23 19:01 DC 09/30/23 18:58 4 MG (SOPHIA MORALES MD) Vital Signs/I&O 09/30/23 09/30/23 17:44 21:16 Temp 35.0 Pulse 76 99 Resp 17 17 B/P (MAP) 110/93 (99) 118/79 Pulse Ox 95 99 O2 Delivery Room Air Room Air (SOPHIA MORALES MD) Blood Pressure Mean: 99 Comment Sinus rhythm with sinus arrhythmia, 80 bpm, QRS duration 86 MS, QTc 426 MS. (VANESSA DUNLAP) Departure Communication (PCP) Reviewed previous ER visits, H&P, lab testing. Differential diagnosis seizure, arrhythmia, electrolyte abnormality, viral syndrome, drug abuse, alcohol abuse. Patient presents to ED for evaluation after seizure. Patient states he has a history of stress-induced seizures. Unknown length of seizure today. Found by family. Unsure if patient hit his head. Was brought to ED by EMS. Alert and oriented x4. GCS of 15. Seizure precautions. There is no evidence of trauma to the head neck back chest or abdomen. Moving all extremities without difficulties. No seizure-like activity here. He is calm and cooperative. Denies any drug use but does report drinking 2 shots of liquor today. Generalized lab work, alcohol level, drug screen, EKG. EKG shows sinus rhythm with sinus arrhythmia. The generalized lab work showed slight elevated white blood count 15. Chemistry grossly unremarkable. Lactic acid 4.98. Alcohol level 119. Positive for THC. Potentially may have had a seizure with the elevated lactic acid or secondary to alcohol induced. Patient was started on a liter of fluid. After 2 hours patient lactic acid came back as 4.58. Recommended a second liter of fluid and continue trending the lactic acid. Patient does not want to stay as his ride is here. He states he feels much better with the fluids. Patient is having no flulike symptoms or signs suggesting infection. Likely had a seizure however other etiologies would need to be considered. Since patient is wanting to be discharge not able to trend the lactic acid to make sure this is continue to improve before discharge. Patient states he will return if symptoms worsen. Suggest follow-up your PCP 1 to 2 days for reevaluation. (VANESSA DUNLAP) Impression Primary Impression: Seizure Additional Impressions: Dehydration Diarrhea Disposition: HOME, SELF-CARE Condition: Stable Departure-Patient Inst. Decision time for Depature: 21:10 (VANESSA DUNLAP) Referrals: [facility],LOCAL PHYSICIAN (PCP) Primary Care Physician Patient Instructions: Seizures, Adult ED Add. Discharge Instructions: Recommend staying hydrated. Drink plenty of fluids. If any worsening symptoms return back to ED. All discharge instructions reviewed with patient and/or family. Voiced understanding. ATTENDING PHYSICIAN NOTE: I was physically present as attending physician in the emergency department during the care of this patient, but I was not directly involved in the decision making or delivery of care for this patient. (SOPHIA MORALES MD) VANESSA DUNLAP Sep 30, 2023 18:10 SOPHIA MORALES MD Oct 01, 2023 06:32
[2023-09-30 18:30] LABS: BASOPHILS # (AUTO) 0.1 10^3/uL (0.0-0.1); BASOPHILS % (AUTO) 0 % (0-10); EOSINOPHILS # (AUTO) 0.1 10^3/uL (0.0-0.3); EOSINOPHILS % (AUTO) 1 % (0-10); HEMATOCRIT 43 % (40-54); HEMOGLOBIN 14.5 g/dL (13.3-17.7); LYMPHOCYTES # (AUTO) 1.8 10^3/uL (1.0-4.0); LYMPHOCYTES % (AUTO) 12 % (12-44); MEAN CORPUSCULAR HEMOGLOBIN 32 pg (25-34); MEAN CORPUSCULAR HGB CONC 34 g/dL (32-36); MEAN CORPUSCULAR VOLUME 97 fL (80-99); MEAN PLATELET VOLUME 9.8 fL (9.0-12.2); MONOCYTES # (AUTO) 0.8 10^3/uL (0.0-1.0); MONOCYTES % (AUTO) 5 % (0-12); NEUTROPHILS # (AUTO) 12.6 10^3/uL (1.8-7.8); NEUTROPHILS % (AUTO) 81 % (42-75); PLATELET COUNT 199 10^3/uL (130-400); WHITE BLOOD COUNT 15.5 10^3/uL (4.3-11.0)
[2023-09-30 18:49] LABS: BAND NEUTROPHILS 4 %; BASOPHILS % (MANUAL) 0 %; EOSINOPHILS % (MANUAL) 2 %; LYMPHOCYTES % (MANUAL) 19 %; MONOCYTES % (MANUAL) 2 %; NEUTROPHILS % (MANUAL) 73 %; RBC MORPH NORMAL
[2023-09-30] MEDS ORDERED: ONDANSETRON INJECTION 4 MG/2 ML (SDV) IVP ONE (19:00)
[2023-09-30 19:07] LABS: ALANINE AMINOTRANSFERASE 36 U/L (0-55); ALKALINE PHOSPHATASE 62 U/L (40-136); BILIRUBIN,TOTAL 0.4 MG/DL (0.1-1.0); BUN/CREATININE RATIO 16; CALCIUM 9.6 MG/DL (8.5-10.1); CARBON DIOXIDE 21 MMOL/L (21-32); CHLORIDE 103 MMOL/L (98-107); CREATININE SERUM 1.05 MG/DL (0.60-1.30); GFR ESTIMATED 99; GLUCOSE 70 MG/DL (70-105); POTASSIUM 3.9 MMOL/L (3.6-5.0); SODIUM 142 MMOL/L (135-145); TOTAL PROTEIN 8.8 GM/DL (6.4-8.2)
--- NOTE | 2023-09-30 19:48 | Diagnostic Imaging Report ---
PROCEDURE: CT head without contrast. TECHNIQUE: Multiple contiguous axial images were obtained through the brain without the use of intravenous contrast. Auto Exposure Controls were utilized during the CT exam to meet ALARA standards for radiation dose reduction. INDICATION: Seizure, head pain, fall. COMPARISON: 01/08/2023. FINDINGS: The ventricles and cortical sulci appear stable since the prior study. There is no midline shift or mass effect. No acute intracranial hemorrhage is seen. There is no CT evidence of acute territorial ischemia. The calvarium appears intact. Paranasal sinuses demonstrate mucosal thickening in the ethmoid and maxillary sinuses. No fluid level is seen. IMPRESSION: No acute intracranial hemorrhage or calvarium fracture. Dictated by: Dictated on workstation # [id number]
[2023-09-30] MEDS ORDERED: NS IV 1000 ML 1,000 ML IV STA (20:00)
[2023-09-30 20:23] LABS: AMPHETAMINE SCREEN, URINE NEGATIVE (NEGATIVE); BARBITURATE SCREEN URINE NEGATIVE (NEGATIVE); CANNABINOID SCREEN, URINE POSITIVE (NEGATIVE); COCAINE SCREEN URINE NEGATIVE (NEGATIVE); METHADONE STAT NEGATIVE (NEGATIVE); OPIATE SCREEN URINE NEGATIVE (NEGATIVE); OXYCODONE STAT NEGATIVE (NEGATIVE); TRICYCLIC ANTIDEPRESSANTS SCRE NEGATIVE (NEGATIVE)
[2023-09-30 20:25] LABS: CLARITY,URINE CLEAR; COLOR,URINE YELLOW
[2023-09-30 20:26] LABS: BACTERIA,URINE TRACE /HPF; BILIRUBIN,URINE NEGATIVE (NEGATIVE); GLUCOSE, URINE (UA) NEGATIVE (NEGATIVE); HYALINE CASTS, URINE RARE /LPF; KETONES,URINE 3+ (NEGATIVE); LEUKOCYTE ESTERASE ,URINE NEGATIVE (NEGATIVE); NITRITE,URINE NEGATIVE (NEGATIVE); PROTEIN,URINE 1+ (NEGATIVE); RBC,URINE 0-2 /HPF; WBC,URINE 0-2 /HPF
[2023-09-30] MEDS ORDERED: LACTATED RINGERS 1,000 ML 1,000 ML IV STA (20:57)
[2023-09-30 21:16] VITALS: BP 118/79
== END 2023-09-30 21:16 | disposition home or self-care (01) ==
LOC: EDUNIT# 17:39 → ER 17:40
DX: G40.509 Epileptic seizures related to external causes, not intractable, without status epilepticus (principal); E86.0 Dehydration; R19.7 Diarrhea, unspecified; I49.8 Other specified cardiac arrhythmias
CPT/HCPCS: 70450; 80053; 80306; 81000; 83605; 85007; 85027; 93005; 96361; 96374; 99284; G0480; 36415; 80320

== ENCOUNTER 2023-10-22 15:47 | Emergency (ER) | payer SELFPAY ==
[~2023-10-22] VITALS: Ht 180.3 cm; Wt 79.3 kg
[2023-10-22] MEDS ORDERED: fentaNYL INJECTION 100 MCG/2 ML VIAL IVP ONE (16:15)
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
[2023-10-22 16:26] LABS: BASOPHILS # (AUTO) 0.1 10^3/uL (0.0-0.1); BASOPHILS % (AUTO) 1 % (0-10); EOSINOPHILS # (AUTO) 0.1 10^3/uL (0.0-0.3); EOSINOPHILS % (AUTO) 2 % (0-10); HEMATOCRIT 39 % (40-54); HEMOGLOBIN 13.1 g/dL (13.3-17.7); LYMPHOCYTES # (AUTO) 2.7 10^3/uL (1.0-4.0); LYMPHOCYTES % (AUTO) 32 % (12-44); MEAN CORPUSCULAR HEMOGLOBIN 32 pg (25-34); MEAN CORPUSCULAR HGB CONC 34 g/dL (32-36); MEAN CORPUSCULAR VOLUME 96 fL (80-99); MEAN PLATELET VOLUME 10.1 fL (9.0-12.2); MONOCYTES # (AUTO) 0.8 10^3/uL (0.0-1.0); MONOCYTES % (AUTO) 9 % (0-12); NEUTROPHILS # (AUTO) 4.7 10^3/uL (1.8-7.8); NEUTROPHILS % (AUTO) 56 % (42-75); PLATELET COUNT 200 10^3/uL (130-400); WHITE BLOOD COUNT 8.5 10^3/uL (4.3-11.0)
[2023-10-22 16:29] LABS: ALBUMIN 4.4 GM/DL (3.2-4.5); POTASSIUM 4.1 MMOL/L (3.6-5.0)
[2023-10-22 16:31] LABS: CALCIUM 9.3 MG/DL (8.5-10.1)
[2023-10-22 16:32] LABS: TOTAL PROTEIN 7.8 GM/DL (6.4-8.2)
[2023-10-22 16:34] LABS: BILIRUBIN,TOTAL 0.9 MG/DL (0.1-1.0)
[2023-10-22 16:35] LABS: CREATININE SERUM 0.84 MG/DL (0.60-1.30)
[2023-10-22] MEDS ORDERED: NS 100 ML (IVPB) BAG IV ONE (16:45)
[2023-10-22] MEDS ORDERED: HOLD METFORMIN - RECEIVED CONTRAST 20 ML VIAL IV SCH (16:45)
[2023-10-22] MEDS ORDERED: IOHEXOL 350 MG/ML 100 ML (OMNIPAQUE 350) VIAL IV ONE (16:45)
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
--- NOTE | 2023-10-22 17:06 | Diagnostic Imaging Report ---
INDICATION: Pain. COMPARISON: Imaging from the same date. TECHNIQUE: Four radiographs of the left tibia and fibula and three radiographs of the left ankle were obtained dated October 22, 2023. FINDINGS: Acute obliquely oriented distal fibular fracture is present at the level of the tibial plafond extending superiorly. There is minimal medial and posterior displacement. The talar dome is unremarkable. Ankle mortise is symmetric. Soft tissue swelling about the ankle, particularly laterally. No additional fracture or dislocation. No suspicious radiopaque foreign body. IMPRESSION: Minimally displaced Sánchez B distal fibular fracture, as above. Dictated by: Dictated on workstation # [id number]
--- NOTE | 2023-10-22 17:07 | Diagnostic Imaging Report ---
INDICATION: Pain. COMPARISON: Imaging from same date. TECHNIQUE: 4 radiographs of the left tibia and fibula and 3 radiographs of the left ankle were obtained dated October 22, 2023. FINDINGS: Acute obliquely oriented distal fibular fracture is present at the level of the tibial plafond and extending superiorly. There is minimal medial and posterior displacement. The talar dome is unremarkable. Ankle mortise is symmetric. Soft tissue swelling about the ankle, particularly laterally. No additional fracture or dislocation. No suspicious radiopaque foreign body. IMPRESSION: Minimally displaced Sánchez B distal fibular fracture as above. Dictated by: Dictated on workstation # [id number]
[2023-10-22] MEDS ORDERED: ACHD5005 PO (18:27)
[2023-10-22 18:37] VITALS: BP 121/67
== END 2023-10-22 18:37 | disposition home or self-care (01) ==
LOC: EDUNIT# 15:47 → ER 15:50
DX: S82.832A Other fracture of upper and lower end of left fibula, initial encounter for closed fracture (principal); H11.32 Conjunctival hemorrhage, left eye; F17.210 Nicotine dependence, cigarettes, uncomplicated; Z88.6 Allergy status to analgesic agent; Y04.0XXA Assault by unarmed brawl or fight, initial encounter
CPT/HCPCS: 36415; 70450; 70486; 72125; 73590; 73610; 74177; 80053; 83690; 85025